=== PATIENT | female | born 1960 | race Caucasian/White ===

== ENCOUNTER → 2017-06-25 | Outpatient (CLI) | payer OTHER ==
[~2017-06-25] VITALS: Ht 157.5 cm; Wt 60.8 kg
[~2017-06-25] MED LIST: IBUPROFEN 800800 M1 PO
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
[2017-06-25 10:32] VITALS: BP 134/86
== END ==
LOC: PAIN 06-14 09:12
DX: M19.012 Primary osteoarthritis, left shoulder (principal); M54.12 Radiculopathy, cervical region

== ENCOUNTER → 2017-07-22 | Outpatient (CLI) | payer OTHER ==
[~2017-07-22] VITALS: Ht 157.5 cm; Wt 61.3 kg
--- NOTE | ~2017-07-22 | HPC ---
[facility] [place] [address] [place] [address] PAIN MANAGEMENT CONSULTATION Name: DIVINETonySULLYALEXANDER Mary [id number] Admission: 07/22/17 Attend Phys: Benigno Palomares DO Discharge: Date of : 64 Report #: [id number] THIS REPORT FOR: //name// CC: KANDICE Palomares DATE OF SERVICE: 07/22/2017 The patient is a 57-year-old female, seen in consultation on 06/25/2017 at the request of her neurosurgeon for consideration for left shoulder injection to help determine impact of primary shoulder pain versus cervical radicular pain. She had a prior surgery repair. She does have some broad posterior disk osteophytes at C5-C6 and C6-C7. We sought authorization for left shoulder injection under fluoroscopy today. We have elected to proceed with the injection today. We will follow up in 2 weeks for reevaluation. If she gets good relief, we will consider primary pain, shoulder related. She, however, gets only nominal relief. We will seek authorization for cervical epidural injection under fluoroscopy next visit given ongoing neck, left shoulder and arm pain, and EMG findings indicative of left C7 radiculopathy. ASSESSMENT: 1. Symptomatic left shoulder degenerative joint disease. 2. Cervical radiculopathy PROCEDURE: Left shoulder injection under fluoroscopy. PROCEDURE: After written informed consent was obtained, the patient taken to the fluoroscopy suite and placed in prone position. After sterile prep and drape, skin was raised. A 22-gauge stylet needle was placed to contact the proximal humerus at the glenohumeral joint. Negative aspiration was accomplished. 1 mL of Omnipaque was injected, showed spread within joints followed with 40 mg triamcinolone plus 1 mL of 0.5% preservative-free bupivacaine. Needle was removed, the area was cleansed and Band-Aid applied. The patient was told to use to the area today, watch for signs of infection. Follow up in 2 weeks for reevaluation. <ELECTRONICALLY SIGNED> By: Benigno Palomares DO 07/23/17 0944 [id number] 2041 Benigno Palomares DO /nt
[2017-07-22 11:00] VITALS: BP 123/84
== END | disposition home or self-care (01) ==
LOC: PAIN 07:03
DX: M19.012 Primary osteoarthritis, left shoulder (principal); M54.12 Radiculopathy, cervical region

== ENCOUNTER → 2017-08-13 | Outpatient (CLI) | payer OTHER ==
[~2017-08-13] VITALS: Ht 157.5 cm; Wt 60.3 kg
--- NOTE | ~2017-08-13 | HPC ---
[facility] [place] [address] [place] [address] PAIN MANAGEMENT CONSULTATION Name: ALEXANDER WEST V Room #: REG [facility]#: [id number] Admission: 08/13/17 Attend Phys: Benigno Palomares DO Discharge: Date of : 64 Report #: [id number] THIS REPORT FOR: //name// CC: KANDICE Palomares HISTORY OF PRESENT ILLNESS: The patient is a very pleasant 57-year-old female, prior seen in pain clinic on 07/22/2017. She had been seen in consultation on 06/25/2017 with a specific request for left shoulder injection and/or cervical epidural injection to try and elucidate the etiology of pain. At last visit, she had a very technically successful left shoulder injection. Good spread of dye within the joint, unfortunately, however, really no improvement of functional status. Returns to pain clinic today with ongoing cervical radicular pain, neck, left shoulder and arm. We elected to proceed with cervical epidural injection presently to support transient relief. We will refer back to Dr. Hunter for consideration for definitive intervention. ASSESSMENT: Symptomatic cervical radiculopathy. PROCEDURE NOTE: Cervical epidural steroid injection under fluoroscopy. PROCEDURE: After written and informed consent was obtained including risk of dural puncture, spinal cord trauma, paralysis and increased pain, the patient was taken to the fluoroscopy suite and placed in the prone position, with appropriate abdominal bolstering, neck was flexed, palms under the thighs. Skin was prepped with ChloraPrep. Sterile draping was applied. Skin wheal with 1% Xylocaine was raised. A 22-gauge 3-1/2 inch epidural Tuohy needle was placed via a midline approach at the C7/T1 interspace, advanced under biplanar fluoroscopy using continuous loss of resistance. With appropriate loss of resistance at the expected depth on lateral view, the glass loss of resistance syringe was disconnected. A low volume extension tubing was connected to the needle and a 5 mL syringe. Negative aspiration for cerebrospinal fluid or blood was noted. A 1 mL of Omnipaque was injected which showed spread within the epidural space on biplanar fluoroscopy. This was followed with 80 mg of triamcinolone plus 1 mL of 1.5% preservative Xylocaine. Needle was withdrawn to the interspinous ligament, 0.5 mL of Xylocaine was used to flush the needle. The needle was then completely withdrawn. The area was cleansed. Band-Aid was applied. The patient was allowed to move off the procedure table and ambulated to the recovery room, monitored for an appropriate period of time, discharged in good and stable condition. The patient was monitored for an appropriate period of time, discharged in good and stable condition. <ELECTRONICALLY SIGNED> By: Benigno Palomares DO 08/16/17 0943 0926 1310 Benigno Palomares DO /nt
[2017-08-13 14:41] VITALS: BP 143/85
== END | disposition home or self-care (01) ==
LOC: PAIN 07:21
DX: M47.812 Spondylosis without myelopathy or radiculopathy, cervical region (principal)

== ENCOUNTER → 2017-09-24 | Outpatient (CLI) | payer OTHER ==
[~2017-09-24] VITALS: Ht 157.5 cm; Wt 59.7 kg
[~2017-09-24] MED LIST changes: +LYRICA 50 MG50 MG PO; +NEURONTIN 300300 M1 PO
--- NOTE | ~2017-09-24 | HPC ---
[facility] [place] [address] [place] [address] PAIN MANAGEMENT CONSULTATION Name: ALEXANDER WEST V Room #: REG [facility]#: [id number] Admission: 09/24/17 Attend Phys: Benigno Palomares DO Discharge: Date of : 64 Report #: [id number] THIS REPORT FOR: //name// CC: Physician staff KANDICE Palomares HISTORY OF PRESENT ILLNESS: The patient is a 57-year-old female initially seen in consultation on 06/25/2017 at the request of Dr. Hunter. We requested that we performed a left shoulder joint injection. That was accomplished with no change in her pain. Her EMG had shown a longstanding left C7 radiculopathy. MRI of the brachial plexus on 05/06/2017 noted broad-based posterior disk bulging at C5-C6 and C6-C7. I did a cervical epidural injection, which afforded 80% improvement of baseline pain. The patient notes she was doing very well for a period of time, but pain recurred without antecedent trauma and overuse and pain is quite problematic in the neck, left shoulder and arm. Cervical range of motion does seem to exacerbate pain presently. PHYSICAL EXAMINATION: Relatively unchanged from presentation. GENERAL: A 57-year-old female, BMI is 24 kg per meter squared. VITAL SIGNS: Stable as noted in the EMR. MUSCULOSKELETAL: Cervical range of motion has limited with acute exacerbation of left radicular symptoms (positive Lhermitte's sign), slight decreased left deltoid strength. ASSESSMENT: Symptomatic cervical radiculopathy by clinical exam and history. RECOMMENDATION: We will repeat cervical epidural injection today and we will have the patient follow up with Dr. Hunter for consideration for ACDF surgery. PROCEDURE NOTE PROCEDURE: Cervical epidural injection under fluoroscopy. DESCRIPTION OF PROCEDURE NOTE: After written and informed consent was obtained including risk of dural puncture, spinal cord trauma, paralysis and increased pain, the patient was taken to the fluoroscopy suite and placed in the prone position, with appropriate abdominal bolstering, neck was flexed, palms under the thighs. Skin was prepped with ChloraPrep. Sterile draping was applied. Skin wheal with 1% Xylocaine was raised. A 22-gauge 3-1/2 inch epidural Tuohy needle was placed via a midline approach at the C7-T1 interspace, advanced under biplanar fluoroscopy using continuous loss of resistance. With appropriate loss of resistance at the expected depth on lateral view, the glass loss of resistance syringe was disconnected. A low volume extension tubing was connected to the needle and a 5 mL syringe. Negative aspiration for cerebrospinal fluid or blood was noted. A 1 mL of Omnipaque was injected which showed spread within the epidural space on biplanar fluoroscopy. This was [address] [address] PAIN MANAGEMENT CONSULTATION Name: SOPHIESULLYALEXANDER V Room #: REG [facility]#: [id number] Admission: 09/24/17 Attend Phys: Benigno Palomares DO Discharge: Date of : 64 Report #: [id number] followed with 80 mg of triamcinolone plus 1 mL of 1.5% preservative Xylocaine. Needle was withdrawn to the interspinous ligament, 0.5 mL of Xylocaine was used to flush the needle. The needle was then completely withdrawn. The area was cleansed. Band-Aid was applied. The patient was allowed to move off the procedure table and ambulated to the recovery room, monitored for an appropriate period of time, discharged in good and stable condition. <ELECTRONICALLY SIGNED> By: Benigno Palomares DO 09/27/17 0709 1523 2106 Benigno Palomares DO /nt
[2017-09-24 13:05] VITALS: BP 137/82
== END | disposition home or self-care (01) ==
LOC: PAIN 07:35
DX: M54.12 Radiculopathy, cervical region (principal); G89.29 Other chronic pain; Z98.890 Other specified postprocedural states; Z88.2 Allergy status to sulfonamides; Z79.899 Other long term (current) drug therapy